=== PATIENT | female | born 1980 | race Hispanic/Latino ===

== ENCOUNTER 2019-08-20 11:06 | Emergency (ER) | payer BC, OTHER ==
[2019-08-20 13:48] LABS: Urine Blood NEGATIVE (NEG); Urine Glucose NEGATIVE (NEG); Urine Protein NEGATIVE (NEG); Urine Specific Gravity 1.015 (1.005-1.030); Urine pH 6.5 (5.0-7.0)
[2019-08-20 13:53] LABS: Absolute Lymphocytes (CBC) 1.7 K/uL (0.7-4.9); Basophils % 0.4 % (0-1.3); Hematocrit 41.5 % (36.0-45.0); MPV 10.3 fL (7.6-11.3); RBC Red Blood Cell Count 4.79 M/uL (3.86-4.86)
[2019-08-20] MEDS ORDERED: MORPHINE 4 MG/ML SYR ONE (14:03)
[2019-08-20] MEDS ORDERED: ONDANSETRON 4 MG/2 ML VIAL ONE (14:03)
[2019-08-20 14:13] LABS: ALT/SGPT 24 U/L (12-78); AST/SGOT 16 U/L (15-37); Albumin 4.1 g/dL (3.4-5.0); Alkaline Phosphatase 65 U/L (45-117); BUN Blood Urea Nitrogen 9 mg/dL (7-18); Bicarbonate 30 mmol/L (21-32); Bilirubin Direct < 0.1 mg/dL (0-0.2); Bilirubin Total 0.4 mg/dL (0.2-1.0); Glucose Level 95 mg/dL (74-106); Lipase 121 U/L (73-393); Potassium 3.2 mmol/L (3.5-5.1); Protein, Total 8.2 g/dL (6.4-8.2); Sodium Level 140 mmol/L (136-145)
--- OUTSIDE RECORDS SUMMARY | 2019-08-20 14:25 | XMS REPORT | Continuity of Care Document ---
:1980 Author Organization [facility] t Address [address] [place] [address] Care Team Providers Name Role Phone Unavailable Unavailable Unavailable Problems This patient has no known problems. Allergies, Adverse Reactions, Alerts This patient has no known allergies or adverse reactions. Medications This patient has no known medications. Procedures This patient has no known procedures. Results Test Description Test Time Test Comments [facility] 2019-04-23 - SCR MAMM BILATERAL BILATERAL KANDY 14:36:31 KANDY CAD CAD DIGITAL DIGITALBILATERAL DIGITAL SCREENING MAMMOGRAM 3D/2D WITH CAD: 04/23/2019CLINICAL: Asymptomatic. Digital breast tomosynthesis was performed in addition to routine CC and MLO views. Current mammographic images were evaluated by either a [employer] M-Vu or a [employer] CAD (computer aided detection system). Comparison is made to exams dated 03/13/2018 mammogram, 02/20/2017 mammogram, and 12/02/2014 mammogram - [facility]. The tissue of both breasts is heterogeneously dense. This may lower the sensitivity of mammography. No suspicious mass, architectural distortion, malignant type calcification, or lymph node abnormality detected. IMPRESSION: INCOMPLETE: ADDITIONAL IMAGING EVALUATION NEEDEDThere is no mammographic evidence of malignancy. Bilateral survey ultrasound to follow.Stewart Mi M.D. ss/:04/23/2019 14:36:31 Entry: - 04/24/2019 14:29:31Imaging Technologist: Isabella JASON, [facility] BI-RADS: 0 Incomplete: Additional Imaging Evaluation Needed BREAST ULTRASOUND 2019-04-23 - BREAST ULTRASOUND BILATERAL 14:36:00 BILATERALULTRASOUND OF BOTH BREASTS: 04/23/2019Comparison is made to exams dated 03/13/2018 mammogram, 02/20/2017 mammogram, and [facility] Color flow and real-time ultrasound of both breasts were performed. Macedo scale images of the real-time examination were reviewed. The breast tissue has heterogenous background echotexture. Bilateral survey ultrasound demonstrates no suspicious sonographic abnormality. No axillary lymphadenopathy was seen.IMPRESSION: NEGATIVE There is no sonographic evidence of malignancy. Resume annual screening mammography in one year. Stewart Mi M.D. ss/:04/23/2019 14:36:00 Entry: - 04/24/2019 14:33:03Imaging Technologist: Isabella Borjas , [facility]: BIRADS 1-2 Combo FU Letter Ultrasound BI-RADS: 1 Negative BREAST ULTRASOUND 2018-03-13 - BREAST ULTRASOUND BILATERAL 14:57:55 BILATERALULTRASOUND OF BOTH BREASTS AND BOTH AXILLA: 03/13/2018CLINICAL: Dense breasts. Comparison is made to exams dated 03/13/2018 mammogram and 02/20/2017 mammogram - [facility]. Real-time ultrasound of both breasts and both axilla was performed. No abnormalities were seen sonographically in either breast or either axilla. Clinical breast exam was unremarkable.IMPRESSION: NEGATIVE There is no sonographic evidence of malignancy. Patient has been informed that she has areas of dense breast tissue that could make it difficult to find a small cancer. A screening mammogram and supplemental ultrasound for dense breast tissue is recommended in 1 year.Sneha Kimble M.D. dm/:03/13/2018 14:57:55 Turning Machine Set Up Operator: Michael Madrid , [facility] sent: BIRADS 1-2 Combo FU Letter Ultrasound BI-RADS: 1 Negative SCR MAMM 2018-03-13 - SCR MAMM BILATERAL BILATERAL KANDY 14:57:15 KANDY CAD CAD DIGITAL DIGITALBILATERAL DIGITAL SCREENING MAMMOGRAM 3D/2D WITH CAD: 03/13/2018CLINICAL: Asymptomatic. Digital breast tomosynthesis was performed in addition to routine CC and MLO views. Current mammographic images were evaluated by either a [employer] M-Vu or a [employer] CAD (computer aided detection system). Comparison is made to exams dated 02/20/2017 mammogram, 12/02/2014 mammogram, and 11/27/2013 mammogram - [facility]. The tissue of both breasts is heterogeneously dense. This may lower the sensitivity of mammography. No suspicious mass, architectural distortion, malignant type calcification, or lymph node abnormality detected. IMPRESSION: NEGATIVEUltrasound pending for additional evaluation. There is no mammographic evidence of malignancy. Sneha Kimble M.D. dm/penrad:03/13/2018 14:57:15 Entry: - 03/15/2018 08:10:10Imaging Technologist: Ashleigh JASON, [facility] BI-RADS: 1 Negative
--- NOTE | 2019-08-20 14:40 | RAD REPORT ---
EXAM DESCRIPTION: CTAbdomen Pelvis W Contrast - 08/20/2019 2:29 pm CLINICAL HISTORY: Abdominal pain. ABD PAIN COMPARISON: Abdomen Pelvis W Contrast dated 02/10/2016 TECHNIQUE: Biphasic CT imaging of the abdomen and pelvis was performed with 100 ml non-ionic IV cont rast. All CT scans are performed using dose optimization technique as appropriate and may include automated exposure control or mA/KV adjustment according to patient size. FINDINGS: The lung bases are clear. The liver, spleen, pancreas, adrenal glands and kidneys are within normal limits. No bowel obstruction, free air, free fluid or abscess. The appendix is normal. No evidence of signi ficant lymphadenopathy. No suspicious bony findings. IMPRESSION: No acute intra-abdominal or pelvic finding.
--- NOTE | 2019-08-20 14:45 | RAD REPORT ---
EXAM DESCRIPTION: US - Abdomen Exam Limited - 08/20/2019 2:37 pm CLINICAL HISTORY: EPIGASTRIC PAIN Abdominal pain COMPARISON: No comparisons FINDINGS: The gallbladder demonstrates no gallstones. No pericholecystic fluid or gallbladder wall t hickening. The common bile duct is normal measuring 4 mm. The liver demonstrates no findings of intrahepatic biliary dilatation. IMPRESSION: Unremarkable examination.
--- NOTE | 2019-08-20 15:48 | EDPHYS ---
Physician Documentation [facility] Name: Bj Lockett Age: 39 yrs Sex: Female : 1980 Arrival Date: 08/20/2019 Time: 11:08 Bed 18 Private MD: ED Physician Ramos Buitrago HPI: 08/19 13:28 This 39 yrs old Female presents to ER via Ambulatory with complaints of jmm Abdominal Pain. 13:28 The patient presents with abdominal pain in the epigastric area. Onset: The jmm symptoms/episode began/occurred gradually, 4 day(s) ago. The symptoms do not radiate. Associated signs and symptoms: Pertinent positives: diarrhea. The symptoms are described as achy, sharp. This is a 39 year old female with no chronic medical conditions that presents to the ED with complaints of epigastric abdominal pain beginning approx 4 days ago. Denies vomiting, has had a few episodes of watery diarrhea. Denies fever. Pain is not exacerbated after eating. . 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 - Social history:: Smoking status: Patient denies any tobacco usage or history of. ROS: 13:28 Constitutional: Negative for fever, chills, and weight loss, Cardiovascular: Negative jmm for chest pain, palpitations, and edema, Respiratory: Negative for shortness of breath, cough, wheezing, and pleuritic chest pain. 13:28 Back: Negative for injury and pain, MS/Extremity: Negative for injury and deformity, Skin: Negative for injury, rash, and discoloration, Neuro: Negative for headache, weakness, numbness, tingling, and seizure, Psych: Negative for depression, anxiety, suicide ideation, homicidal ideation, and hallucinations. 13:28 Abdomen/GI: Positive for abdominal pain, diarrhea. 13:28 All other systems are negative. Exam: 13:28 Constitutional: This is a well developed, well nourished patient who is awake, alert, jmm and in no acute distress. Head/Face: atraumatic. Eyes: EOMI, no conjunctival erythema appreciated ENT: Moist Mucus Membranes Neck: Trachea midline, Supple Chest/axilla: Normal chest wall appearance and motion. Cardiovascular: Regular rate and rhythm. No edema appreciated Respiratory: Normal respirations, no respiratory distress appreciated 13:28 Skin: General appearance color normal MS/ Extremity: Moves all extremities, no obvious deformities appreciated, no edema noted to the lower extremities Neuro: Awake and alert, normal gait Psych: Behavior is normal, Mood is normal, Patient is cooperative and pleasant 13:28 Abdomen/GI: Inspection: abdomen appears normal, Bowel sounds: normal, Palpation: soft, mild abdominal tenderness, in the right upper quadrant and left upper quadrant. Vital Signs: 11:28 BP 118 / 68; Pulse 53; Resp 17; Temp 98.2; Pulse Ox 97% ; Weight 63.5 kg; Height 5 ft. 7 3 in. (160.02 cm); Pain 7/10; 13:44 BP 105 / 49; Pulse 52; Resp 15 S; Pulse Ox 100% on R/A; ca1 14:55 BP 121 / 72; Pulse 50; Resp 18 S; Pulse Ox 100% on R/A; ca1 15:51 BP 123 / 57; Pulse 52; Resp 18 S; Pulse Ox 100% on R/A; ca1 11:28 Body Mass Index 24.80 (63.50 kg, 160.02 cm) 7 MDM: 13:46 Patient medically screened. [facility] 15:47 Data reviewed: vital signs, nurses notes. Counseling: I had a detailed discussion with [facility] the patient and/or guardian regarding: the historical points, exam findings, and any diagnostic results supporting the discharge/admit diagnosis, lab results, radiology results, the need for outpatient follow up, to return to the emergency department if symptoms worsen or persist or if there are any questions or concerns that arise at home. ED course: Patient is alert and non toxic in appearance in the ED. Patient is advised to follow up with pcp and otherwise given strict return precautions. Imaging studies negative. Advised to follow up with GI for further evaluation. . 08/19 13:28 Order name: Basic Metabolic Panel; Complete Time: 14:43 [facility] 08/19 13:28 Order name: CBC with Diff; Complete Time: 14:43 [facility] 08/19 13:28 Order name: Hepatic Function; Complete Time: 14:43 [facility] 08/19 13:28 Order name: Lipase; Complete Time: 14:43 [facility] 08/19 13:34 Order name: Urine Dipstick--Ancillary (enter results); Complete Time: 13:57 ri 08/19 13:34 Order name: Urine --Ancillary (enter results); Complete Time: 13:57 ri 08/19 13:28 Order name: IV Saline Lock; Complete Time: 13:43 [facility] 08/19 13:28 Order name: Labs collected and sent; Complete Time: 13:43 [facility] 08/19 13:47 Order name: CT Abd/Pelvis - IV Contrast Only; Complete Time: 14:43 [facility] 08/19 13:47 Order name: US Abdomen Limited; Complete Time: 14:54 [facility] 08/19 14:32 Order name: CREATININE WHOLE BLOOD; Complete Time: 14:43 [facility] 08/19 13:28 Order name: Urine Dipstick-Ancillary (obtain specimen); Complete Time: 13:32 jm Administered Medications: 15:50 Not Given (Patient Refused): morphine 4 mg IVP once; RASS on ADMIN: Combtv4, Very ca1 Agttd3, Agttd2, Rstlss1, AlertClm0, Drwsy-1, Lt Sdtn-2, Mod Sdtn-3, Dp Sdtn-4, UnArsble-5 15:50 Not Given (Patient Refused): Zofran (Ondansetron) 4 mg IVP once; over 2 minutes ca1 15:53 Drug: Ketorolac 30 mg Route: IVP; Site: right antecubital; ca1 15:59 Follow up: Response: Medication administered at discharge. ca1 Disposition: 08/20 08:42 Co-signature as Attending Physician, Ramos Buitrago MD I agree with the assessment and kdr plan of care. Disposition: 08/20/19 15:48 Discharged to Home. Impression: Other abdominal pain. - Condition is Stable. - Discharge Instructions: Abdominal Pain, Adult. - Prescriptions for Bentyl 20 mg Oral Tablet - take 2 tablet by ORAL route every 6 hours As needed; 40 tablet. Pepcid 20 mg Oral Tablet - take 1 tablet by ORAL route every 12 hours for 10 days; 20 tablet. - Medication Reconciliation Form, Thank You Letter, Antibiotic Education, Prescription Opioid Use form. - Follow up: Private Physician; When: 2 - 3 days; Reason: Recheck today's complaints, Continuance of care, Re-evaluation by your physician. Signatures: Dispatcher [employer] Ramos Austin MD MD kdr Mickail, Joel, PA PA jmm Leal, Jahala, RN RN jl7 Shauna Young RN RN ca1 Corrections: (The following items were deleted from the chart) 08/19 16:00 15:48 08/20/2019 15:48 Discharged to Home. Impression: Other abdominal pain. Condition ca1 is Stable. Forms are Medication Reconciliation Form, Thank You Letter, Antibiotic Education, Prescription Opioid Use. Follow up: Private Physician; When: 2 - 3 days; Reason: Recheck today's complaints, Continuance of care, Re-evaluation by your physician. jimmy
--- NOTE | 2019-08-20 15:48 | ER ---
Nurse's Notes [facility] [place], [place] Name: Bj Lockett Age: 39 yrs Sex: Female : 1980 Arrival Date: 08/20/2019 Time: 11:08 Bed 18 Private MD: Diagnosis: Other abdominal pain Presentation: 08/19 11:28 Chief complaint: Patient states: Bilateral upper abdominal pain x 4 days, reports N/D jl7 on Saturday. Coronavirus screen: Proceed with normal triage. Patient denies a cough. Patient denies shortness of breath or difficulty breathing. Patient denies measured and/or subjective temperature greater than 100.4F prior to today's visit. Patient denies travel on a cruise ship or to a country the [facility] currently lists as an affected area. Patient denies contact with known and/or suspected case of COVID-19. Ebola Screen: No symptoms or risks identified at this time. Initial Sepsis Screen: Does the patient meet any 2 criteria? No. Patient's initial sepsis screen is negative. Does the patient have a suspected source of infection? No. Patient's initial sepsis screen is negative. Risk Assessment: Do you want to hurt yourself or someone else? Patient reports no desire to harm self or others. Onset of symptoms was August 17, 2019. Care prior to arrival: None. 11:28 Method Of Arrival: Ambulatory jl7 11:28 Acuity: ALEXX 3 jl7 Triage Assessment: 11:31 General: Appears in no apparent distress. uncomfortable, Behavior is calm, cooperative, jl7 appropriate for age. Pain: Complains of pain in right upper quadrant and left upper quadrant Pain currently is 7 out of 10 on a pain scale. GI: Abdomen is flat, non-distended, Reports nausea. 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 - Social history:: Smoking status: Patient denies any tobacco usage or history of. Screenin:30 Abuse screen: Denies threats or abuse. Denies injuries from another. Nutritional ca1 screening: No deficits noted. Tuberculosis screening: No symptoms or risk factors identified. Fall Risk None identified. Assessment: 13:30 General: Appears in no apparent distress. comfortable, Behavior is calm, cooperative, ca1 appropriate for age. General: Behavior is. Pain: Complains of pain in right upper quadrant and left upper quadrant Pain does not radiate. Pain currently is 8 out of 10 on a pain scale. Pain began 2-3 days ago. Is continuous. Neuro: Level of Consciousness is awake, alert, obeys commands, Oriented to person, place, time, situation, Appropriate for age. Cardiovascular: Heart tones S1 S2 present Capillary refill < 3 seconds Patient's skin is warm and dry. Respiratory: Airway is patent Respiratory effort is even, unlabored, Respiratory pattern is regular, symmetrical, Breath sounds are clear bilaterally. GI: Abdomen is flat, non-distended, Bowel sounds present X 4 quads. Abd is soft X 4 quads Abdomen is tender to palpation in right upper quadrant and left upper quadrant Reports diarrhea, nausea. : Urine is cloudy. EENT: No signs and/or symptoms were reported regarding the EENT system. Derm: Skin is intact, is healthy with good turgor, Skin is pink, warm \T\ dry. Musculoskeletal: Circulation, motion, and sensation intact. Capillary refill < 3 seconds. 13:58 Reassessment: Pt refused nausea and pain medication at this time. ca1 14:55 Reassessment: Patient appears in no apparent distress at this time. Patient and/or ca1 family updated on plan of care and expected duration. Pain level reassessed. Patient is alert, oriented x 3, equal unlabored respirations, skin warm/dry/pink. 15:51 Reassessment: Patient appears in no apparent distress at this time. Patient is alert, ca1 oriented x 3, equal unlabored respirations, skin warm/dry/pink. Vital Signs: 11:28 BP 118 / 68; Pulse 53; Resp 17; Temp 98.2; Pulse Ox 97% ; Weight 63.5 kg; Height 5 ft. jl7 3 in. (160.02 cm); Pain 7/10; 13:44 BP 105 / 49; Pulse 52; Resp 15 S; Pulse Ox 100% on R/A; ca1 14:55 BP 121 / 72; Pulse 50; Resp 18 S; Pulse Ox 100% on R/A; ca1 15:51 BP 123 / 57; Pulse 52; Resp 18 S; Pulse Ox 100% on R/A; ca1 11:28 Body Mass Index 24.80 (63.50 kg, 160.02 cm) jl7 ED Course: 11:08 Patient arrived in ED. ag5 11:31 Triage completed. jl7 11:31 Arm band placed on right wrist. Patient placed in waiting room, Patient notified of jl7 wait time. 13:24 Shauna Young, ANGELA is Primary Nurse. ca1 13:27 Han Mejia PA is PHCP. [facility] 13:27 Ramos Buitrago MD is Attending Physician. jmm 13:30 Patient has correct armband on for positive identification. Placed in gown. Bed in low ca1 position. Call light in reach. Side rails up X 1. Pulse ox on. NIBP on. Warm blanket given. 13:43 Initial lab(s) drawn, by me, sent to lab. Inserted saline lock: 22 gauge in right ca1 antecubital area, using aseptic technique. ,using aseptic technique. by KJ, environmental science technician Blood collected. 14:29 CT Abd/Pelvis - IV Contrast Only In Process Unspecified. EDMS 14:37 US Abdomen Limited In Process Unspecified. EDMS 16:00 No provider procedures requiring assistance completed. IV discontinued, intact, ca1 bleeding controlled, No redness/swelling at site. Pressure dressing applied. Administered Medications: 15:50 Not Given (Patient Refused): morphine 4 mg IVP once; RASS on ADMIN: Combtv4, Very ca1 Agttd3, Agttd2, Rstlss1, AlertClm0, Drwsy-1, Lt Sdtn-2, Mod Sdtn-3, Dp Sdtn-4, UnArsble-5 15:50 Not Given (Patient Refused): Zofran (Ondansetron) 4 mg IVP once; over 2 minutes ca1 15:53 Drug: Ketorolac 30 mg Route: IVP; Site: right antecubital; ca1 15:59 Follow up: Response: Medication administered at discharge. ca1 Outcome: 15:48 Discharge ordered by . jm 16:00 Discharged to home ambulatory. ca1 16:00 Condition: stable 16:00 Discharge instructions given to patient, Instructed on discharge instructions, follow up and referral plans. medication usage, Demonstrated understanding of instructions, follow-up care, medications, Prescriptions given X 2. 16:00 Patient left the ED. ca1 Signatures: Dispatcher [employer] EDMS Han Mejia PA PA jmm Leal, Jahala, RN RN jl7 Shauna Young RN RN ca1 Leander Dawson 5
[2019-08-20] MEDS ORDERED: KETOROLAC 30 MG/ML INJ ONE (16:05)
[2019-08-20 16:19] VITALS: TEMP 98.2
[2019-08-20 16:21] VITALS: O2SAT 100
[2019-08-20 16:24] VITALS: BP 123/57
== END 2019-08-20 16:00 | disposition home or self-care (01) ==
LOC: ER 11:06
DX: R10.13 Epigastric pain (principal); R19.7 Diarrhea, unspecified
CPT/HCPCS: 85025; 80048; 36415; 81025; 82565; 80076; 81003; 83690; 74177; 76705; 96374; 99284; Q9967; J2405